=== PATIENT | female | born 1950 | race Caucasian/White ===

== ENCOUNTER 2020-07-17 12:52 | Inpatient (IN) | payer MEDICARE, OTHER ==
[~2020-07-17] VITALS: Ht 162.6 cm; Wt 108.0 kg
[2020-07-17] MEDS ORDERED: QUET100T PO (13:16)
[2020-07-17] MEDS ORDERED: MEMA10TA PO (13:16)
[2020-07-17] MEDS ORDERED: BUPR-96 PO (13:16)
[2020-07-17] MEDS ORDERED: PHEN-705 PO (13:16)
[2020-07-17] MEDS ORDERED: LOSA25TA3 PO (13:16)
[2020-07-17] MEDS ORDERED: ALBU18HF2 INH (13:16)
[2020-07-17] MEDS ORDERED: BENZ0.5T43 PO (13:16)
[2020-07-17] MEDS ORDERED: CHOL10002 PO (13:16)
[2020-07-17] MEDS ORDERED: OMEP20CA15 PO (13:16)
[2020-07-17] MEDS ORDERED: DONE10TA11 PO (13:16)
[2020-07-17] MEDS ORDERED: ARIP30TA3 IM (13:16)
[2020-07-17] MEDS ORDERED: FURO-152 PO (13:16)
[2020-07-17] MEDS ORDERED: ATOR20TA PO (13:16)
[2020-07-17] MEDS ORDERED: CEPH-570 PO (13:16)
[2020-07-17 15:00] VITALS: BP 144/72
[2020-07-17] MEDS ORDERED: BLOOD SUGAR DIAGNOSTIC 1 EACH STRIP VI ONE (15:45)
[2020-07-17] MEDS: MAG HYDROX/AL HYDROX/SIMETH 30 ML LIQUID UDC PO PRN (19:48)
[2020-07-17] MEDS ORDERED: ALBUTEROL SULFATE 2.5 MG/3 ML NEBU NEB PRN (20:00)
[2020-07-17 20:47] VITALS: BP 171/95
[2020-07-17] MEDS: ATORVASTATIN 20 MG TABLET PO SCH (21:48)
[2020-07-17] MEDS: TEMAZEPAM 7.5 MG CAPSULE PO PRN (23:02)
[2020-07-18] MEDS: CLONAZEPAM 0.5 MG TABLET PO PRN (03:02)
[2020-07-18 07:20] LABS: BASOPHILS % (AUTO) 0.6 % (0.0-2.0); EOSINOPHILS # (AUTO) 0.1 K/uL (0.0-0.7); HEMATOCRIT 42.8 % (31.2-41.9); LYMPHOCYTES # (AUTO) 1.8 K/uL (20.0-40.0); LYMPHOCYTES % (AUTO) 24.6 % (20.5-51.5); MEAN CORPUSCULAR HEMOGLOBIN 29.8 uug (24.7-32.8); MEAN CORPUSCULAR HGB CONC 33 g/dL (32.3-35.6); MEAN CORPUSCULAR VOLUME 91.2 fL (75.5-95.3); MONOCYTES # (AUTO) 0.7 K/uL (2.0-10.0); MONOCYTES % (AUTO) 9.7 % (0.0-11.0); NEUTROPHILS # (AUTO) 4.6 K/uL (1.8-8.9); NEUTROPHILS % (AUTO) 64.1 % (38.5-71.5); PLATELET COUNT (AUTO) 325 K/uL (179-408); WHITE BLOOD COUNT (AUTO) 7.1 K/uL (3.8-11.8)
[2020-07-18 07:30] VITALS: BP 169/102
[2020-07-18 07:42] LABS: THYROID STIMULATING HORMONE 1.758 mIU/mL (0.358-3.740)
[2020-07-18 07:59] LABS: BILIRUBIN,TOTAL 0.5 mg/dL (0.2-1.0); CREATININE 0.9 mg/dL (0.6-1.3); MAGNESIUM 2.3 mg/dL (1.8-2.4); PHOSPHOROUS 3.2 mg/dL (2.5-4.9); POTASSIUM 3.8 mmol/L (3.5-5.1); TOTAL PROTEIN, SERUM 7.9 g/dL (6.4-8.2)
[2020-07-18] MEDS: CHOLECALCIFEROL 1,000 UNIT TABLET PO SCH (09:30)
[2020-07-18] MEDS: LOSARTAN POTASSIUM 25 MG TABLET PO SCH (09:30)
[2020-07-18] MEDS: FUROSEMIDE 20 MG TABLET PO SCH (09:30)
[2020-07-18] MEDS: CEphaleXIN 500 MG CAPSULE PO SCH ×3 (09:30→17:21)
[2020-07-18] MEDS: buPROPion XL 150 MG TAB.SR.24H PO SCH (15:14)
[2020-07-18 16:00] VITALS: BP 177/90
[2020-07-18] MEDS: QUETIAPINE FUMARATE 100 MG TABLET PO SCH (17:21)
[2020-07-18] MEDS ORDERED: CLONIDINE HCL 0.1 MG TABLET PO PRN (18:15)
[2020-07-18] MEDS: BENZTROPINE MESYLATE 1 MG TABLET PO SCH (20:20)
[2020-07-18] MEDS: ATORVASTATIN 20 MG TABLET PO SCH (20:20)
[2020-07-18 20:52] VITALS: BP 146/99
[2020-07-19] MEDS: CLONAZEPAM 0.5 MG TABLET PO PRN ×3 (00:16→13:34)
[2020-07-19] MEDS: ACETAMINOPHEN 325 MG TABLET PO PRN (00:16)
[2020-07-19] MEDS: TEMAZEPAM 7.5 MG CAPSULE PO PRN (03:45)
[2020-07-19] MEDS: MAG HYDROX/AL HYDROX/SIMETH 30 ML LIQUID UDC PO PRN ×2 (06:43→18:01)
[2020-07-19 07:30] VITALS: BP 142/80
[2020-07-19] MEDS: LOSARTAN POTASSIUM 25 MG TABLET PO SCH (08:29)
[2020-07-19] MEDS: CHOLECALCIFEROL 1,000 UNIT TABLET PO SCH (08:29)
[2020-07-19] MEDS: buPROPion XL 150 MG TAB.SR.24H PO SCH (08:30)
[2020-07-19] MEDS: FUROSEMIDE 20 MG TABLET PO SCH (08:30)
[2020-07-19] MEDS: CEphaleXIN 500 MG CAPSULE PO SCH ×3 (08:30→17:10)
[2020-07-19] MEDS: OXCARBAZEPINE 150 MG TABLET PO SCH ×2 (14:02→20:34)
[2020-07-19 16:00] VITALS: BP 135/73
[2020-07-19] MEDS ORDERED: OLANZAPINE 10 MG VIAL IM ONE (16:00)
[2020-07-19] MEDS: QUETIAPINE FUMARATE 100 MG TABLET PO SCH (17:10)
[2020-07-19] MEDS ORDERED: diphenhydrAMINE 50 MG/1 ML VIAL IM STA (20:05)
[2020-07-19] MEDS ORDERED: LORAZEPAM 2 MG/1 ML VIAL IM STA (20:05)
[2020-07-19] MEDS ORDERED: HALOPERIDOL LACTATE 5 MG/1 ML VIAL IM PRN (20:15)
[2020-07-19] MEDS ORDERED: HALOPERIDOL LACTATE 5 MG/1 ML VIAL IM STA ×2 (20:24→20:41)
[2020-07-19] MEDS: BENZTROPINE MESYLATE 1 MG TABLET PO SCH (20:34)
[2020-07-19] MEDS: ATORVASTATIN 20 MG TABLET PO SCH (20:34)
[2020-07-20] MEDS: CLONAZEPAM 0.5 MG TABLET PO PRN (02:24)
[2020-07-20] MEDS: MAGNESIUM HYDROXIDE 30 ML LIQUID UDC PO PRN (02:24)
[2020-07-20] MEDS: PANTOPRAZOLE SODIUM 40 MG TABLET.DR PO SCH (06:14)
[2020-07-20 07:30] VITALS: BP 149/90
[2020-07-20] MEDS: FUROSEMIDE 20 MG TABLET PO SCH (09:11)
[2020-07-20] MEDS: OXCARBAZEPINE 150 MG TABLET PO SCH ×2 (09:11→16:09)
[2020-07-20] MEDS: LOSARTAN POTASSIUM 25 MG TABLET PO SCH (09:11)
[2020-07-20] MEDS: CEphaleXIN 500 MG CAPSULE PO SCH ×2 (09:11→12:00)
[2020-07-20] MEDS: CHOLECALCIFEROL 1,000 UNIT TABLET PO SCH (09:12)
[2020-07-20] MEDS: ACETAMINOPHEN 325 MG TABLET PO PRN ×2 (12:01→21:15)
[2020-07-20] MEDS: MAG HYDROX/AL HYDROX/SIMETH 30 ML LIQUID UDC PO PRN (13:10)
[2020-07-20] MEDS ORDERED: QUETIAPINE FUMARATE 100 MG TABLET PO SCH (18:00)
[2020-07-20 20:00] VITALS: BP 116/68
[2020-07-20] MEDS: BENZTROPINE MESYLATE 1 MG TABLET PO SCH (20:47)
[2020-07-20] MEDS: ATORVASTATIN 20 MG TABLET PO SCH (20:47)
[2020-07-21] MEDS: TEMAZEPAM 7.5 MG CAPSULE PO PRN (00:43)
[2020-07-21] MEDS: CLONAZEPAM 0.5 MG TABLET PO PRN ×3 (01:44→12:52)
[2020-07-21] MEDS ORDERED: HALOPERIDOL LACTATE 5 MG/1 ML VIAL IM ONE ×2 (02:30→08:45)
[2020-07-21] MEDS ORDERED: BENZTROPINE MESYLATE 2 MG/2 ML AMPUL IM ONE (02:30)
[2020-07-21] MEDS: PANTOPRAZOLE SODIUM 40 MG TABLET.DR PO SCH (07:22)
[2020-07-21 07:30] VITALS: BP 130/63
[2020-07-21] MEDS ORDERED: diphenhydrAMINE 50 MG/1 ML VIAL IM ONE (08:45)
[2020-07-21] MEDS ORDERED: LORAZEPAM 2 MG/1 ML VIAL IM ONE (08:45)
[2020-07-21] MEDS: OXCARBAZEPINE 150 MG TABLET PO SCH ×3 (09:00→16:08)
[2020-07-21] MEDS: FUROSEMIDE 20 MG TABLET PO SCH (09:00)
[2020-07-21] MEDS: CHOLECALCIFEROL 1,000 UNIT TABLET PO SCH (09:00)
[2020-07-21] MEDS: LOSARTAN POTASSIUM 25 MG TABLET PO SCH ×2 (09:00→12:54)
[2020-07-21] MEDS: QUETIAPINE FUMARATE 25 MG TABLET PO PRN ×2 (09:08→12:56)
[2020-07-21 16:00] VITALS: BP 117/83
[2020-07-21] MEDS ORDERED: QUETIAPINE FUMARATE 200 MG TABLET PO SCH (18:00)
[2020-07-21] MEDS: ATORVASTATIN 20 MG TABLET PO SCH (20:38)
[2020-07-21] MEDS: BENZTROPINE MESYLATE 1 MG TABLET PO SCH (20:38)
[2020-07-22] MEDS: MAGNESIUM HYDROXIDE 30 ML LIQUID UDC PO PRN (00:09)
[2020-07-22] MEDS: TEMAZEPAM 7.5 MG CAPSULE PO PRN ×2 (00:43→22:47)
[2020-07-22] MEDS: QUETIAPINE FUMARATE 25 MG TABLET PO PRN ×2 (01:04→08:04)
[2020-07-22] MEDS: CLONAZEPAM 0.5 MG TABLET PO PRN ×3 (01:07→20:08)
[2020-07-22] MEDS: PANTOPRAZOLE SODIUM 40 MG TABLET.DR PO SCH (06:05)
[2020-07-22 08:03] VITALS: BP 150/63
[2020-07-22] MEDS: OXCARBAZEPINE 150 MG TABLET PO SCH ×2 (08:48→16:44)
[2020-07-22] MEDS: LOSARTAN POTASSIUM 25 MG TABLET PO SCH (08:48)
[2020-07-22] MEDS: CHOLECALCIFEROL 1,000 UNIT TABLET PO SCH (08:49)
[2020-07-22] MEDS: FUROSEMIDE 20 MG TABLET PO SCH (08:49)
[2020-07-22 16:18] VITALS: BP 143/62
[2020-07-22] MEDS ORDERED: QUETIAPINE FUMARATE 100 MG TABLET PO SCH (18:00)
[2020-07-22] MEDS: BENZTROPINE MESYLATE 1 MG TABLET PO SCH (20:09)
[2020-07-22] MEDS: ATORVASTATIN 20 MG TABLET PO SCH (20:09)
[2020-07-22 21:24] VITALS: BP 122/49
[2020-07-23] MEDS: QUETIAPINE FUMARATE 25 MG TABLET PO PRN ×2 (02:15→08:37)
[2020-07-23] MEDS: ACETAMINOPHEN 325 MG TABLET PO PRN (02:15)
[2020-07-23] MEDS: CLONAZEPAM 0.5 MG TABLET PO PRN ×2 (05:18→17:09)
[2020-07-23] MEDS: PANTOPRAZOLE SODIUM 40 MG TABLET.DR PO SCH (06:17)
[2020-07-23 07:30] VITALS: BP 122/68
[2020-07-23] MEDS: FUROSEMIDE 20 MG TABLET PO SCH (08:31)
[2020-07-23] MEDS: OXCARBAZEPINE 150 MG TABLET PO SCH ×2 (08:31→16:24)
[2020-07-23] MEDS: CHOLECALCIFEROL 1,000 UNIT TABLET PO SCH (08:31)
[2020-07-23] MEDS: LOSARTAN POTASSIUM 25 MG TABLET PO SCH (08:31)
[2020-07-23] MEDS ORDERED: LORAZEPAM 2 MG/1 ML VIAL IM ONE ×2 (14:15→21:45)
[2020-07-23] MEDS ORDERED: HALOPERIDOL LACTATE 5 MG/1 ML VIAL IM ONE (14:15)
[2020-07-23] MEDS ORDERED: diphenhydrAMINE 50 MG/1 ML VIAL IM ONE (14:15)
[2020-07-23 16:00] VITALS: BP 140/87
[2020-07-23] MEDS: DIVALPROEX 125 MG TABLET.DR PO SCH (16:24)
[2020-07-23] MEDS: BENZTROPINE MESYLATE 1 MG TABLET PO SCH (20:05)
[2020-07-23] MEDS: OLANZAPINE ZYDIS 5 MG TAB.RAPDIS PO SCH (20:07)
[2020-07-23] MEDS: ATORVASTATIN 20 MG TABLET PO SCH (20:08)
[2020-07-23 20:52] VITALS: BP 120/55
[2020-07-23] MEDS ORDERED: OLANZAPINE 10 MG VIAL IM ONE (21:45)
[2020-07-24 00:33] LABS: *BILIRUBIN,URIN NEGATIVE (NEGATIVE); *BLOOD, URINE NEGATIVE (NEGATIVE); *COLOR,URINE YELLOW (YELLOW); *KETONES,URINE NEGATIVE (NEGATIVE); *UROBILINOGEN,URINE 0.2 E.U./dl (NORMAL); LEUKOCYTE ESTERASE ,URINE TRACE (NEGATIVE); NITRITE, URINE NEGATIVE (NEGATIVE); PH,URINE 6.5 (5.0-8.0); UGLUCOSE NEGATIVE (NEGATIVE)
[2020-07-24 00:47] LABS: *CLARITY,URINE HAZY (CLEAR)
[2020-07-24 00:53] LABS: BACTERIA,URINE NONE SEEN /HPF (NONE SEEN); SQUAMOUS EPITHELIAL CELL,UR MANY /HPF (NONE SEEN)
[2020-07-24] MEDS: TEMAZEPAM 7.5 MG CAPSULE PO PRN (01:39)
[2020-07-24] MEDS: CLONAZEPAM 0.5 MG TABLET PO PRN (02:47)
[2020-07-24] MEDS: PANTOPRAZOLE SODIUM 40 MG TABLET.DR PO SCH (06:31)
[2020-07-24 07:30] VITALS: BP 159/64
[2020-07-24] MEDS: CHOLECALCIFEROL 1,000 UNIT TABLET PO SCH (08:17)
[2020-07-24] MEDS: DIVALPROEX 125 MG TABLET.DR PO SCH ×2 (08:17→08:24)
[2020-07-24] MEDS: FUROSEMIDE 20 MG TABLET PO SCH (08:17)
[2020-07-24] MEDS: LOSARTAN POTASSIUM 25 MG TABLET PO SCH (08:17)
[2020-07-24] MEDS: OXCARBAZEPINE 150 MG TABLET PO SCH ×2 (08:17→18:13)
[2020-07-24] MEDS: OLANZAPINE ZYDIS 5 MG TAB.RAPDIS PO SCH ×2 (08:18→20:36)
[2020-07-24] MEDS: CLONAZEPAM 0.5 MG TABLET PO SCH ×2 (11:54→18:13)
[2020-07-24 16:00] VITALS: BP 111/72
[2020-07-24 20:00] VITALS: BP 145/79
[2020-07-24] MEDS: BENZTROPINE MESYLATE 1 MG TABLET PO SCH (20:35)
[2020-07-24] MEDS: ATORVASTATIN 20 MG TABLET PO SCH (20:35)
[2020-07-25] MEDS: TEMAZEPAM 7.5 MG CAPSULE PO PRN (00:31)
[2020-07-25] MEDS: CLONAZEPAM 0.5 MG TABLET PO PRN ×2 (01:25→21:44)
[2020-07-25] MEDS: PANTOPRAZOLE SODIUM 40 MG TABLET.DR PO SCH (06:21)
[2020-07-25 07:30] VITALS: BP 146/81
[2020-07-25] MEDS: CHOLECALCIFEROL 1,000 UNIT TABLET PO SCH (08:48)
[2020-07-25] MEDS: CLONAZEPAM 0.5 MG TABLET PO SCH ×3 (08:49→16:23)
[2020-07-25] MEDS: FUROSEMIDE 20 MG TABLET PO SCH (08:49)
[2020-07-25] MEDS: OXCARBAZEPINE 150 MG TABLET PO SCH ×2 (08:49→16:24)
[2020-07-25] MEDS: OLANZAPINE ZYDIS 5 MG TAB.RAPDIS PO SCH ×2 (08:49→20:21)
[2020-07-25] MEDS: LOSARTAN POTASSIUM 25 MG TABLET PO SCH (08:50)
[2020-07-25 15:23] VITALS: BP 149/84
[2020-07-25] MEDS: HALOPERIDOL 5 MG TABLET PO SCH (16:24)
[2020-07-25] MEDS: BENZTROPINE MESYLATE 1 MG TABLET PO SCH (20:21)
[2020-07-25] MEDS: ATORVASTATIN 20 MG TABLET PO SCH (20:21)
[2020-07-25 20:27] VITALS: BP 119/64
[2020-07-26] MEDS: ACETAMINOPHEN 325 MG TABLET PO PRN ×2 (03:44→14:54)
[2020-07-26] MEDS: PANTOPRAZOLE SODIUM 40 MG TABLET.DR PO SCH (06:03)
[2020-07-26 07:30] VITALS: BP 149/67
[2020-07-26] MEDS: FUROSEMIDE 20 MG TABLET PO SCH (09:27)
[2020-07-26] MEDS: OXCARBAZEPINE 150 MG TABLET PO SCH ×2 (09:27→16:37)
[2020-07-26] MEDS: CLONAZEPAM 0.5 MG TABLET PO SCH ×3 (09:27→16:36)
[2020-07-26] MEDS: OLANZAPINE ZYDIS 5 MG TAB.RAPDIS PO SCH ×2 (09:27→20:34)
[2020-07-26] MEDS: CHOLECALCIFEROL 1,000 UNIT TABLET PO SCH (09:27)
[2020-07-26] MEDS: HALOPERIDOL 5 MG TABLET PO SCH ×2 (09:27→16:37)
[2020-07-26] MEDS: LOSARTAN POTASSIUM 25 MG TABLET PO SCH (09:28)
[2020-07-26] MEDS: CLONAZEPAM 0.5 MG TABLET PO PRN ×2 (11:43→20:35)
[2020-07-26 16:00] VITALS: BP 151/75
[2020-07-26 20:27] VITALS: BP 131/81
[2020-07-26] MEDS: ATORVASTATIN 20 MG TABLET PO SCH (20:33)
[2020-07-26] MEDS: BENZTROPINE MESYLATE 1 MG TABLET PO SCH (20:33)
[2020-07-27] MEDS: TEMAZEPAM 7.5 MG CAPSULE PO PRN (00:14)
[2020-07-27] MEDS: ACETAMINOPHEN 325 MG TABLET PO PRN ×3 (00:14→21:46)
[2020-07-27] MEDS ORDERED: LORAZEPAM 2 MG/1 ML VIAL IM STA (01:08)
[2020-07-27] MEDS ORDERED: HALOPERIDOL LACTATE 5 MG/1 ML VIAL IM STA (01:08)
[2020-07-27] MEDS ORDERED: diphenhydrAMINE 50 MG/1 ML VIAL IM STA (01:08)
[2020-07-27] MEDS: PANTOPRAZOLE SODIUM 40 MG TABLET.DR PO SCH (06:19)
[2020-07-27 07:30] VITALS: BP 135/64
[2020-07-27] MEDS: CHOLECALCIFEROL 1,000 UNIT TABLET PO SCH (08:24)
[2020-07-27] MEDS: CLONAZEPAM 0.5 MG TABLET PO SCH ×3 (08:24→16:49)
[2020-07-27] MEDS: OXCARBAZEPINE 150 MG TABLET PO SCH ×2 (08:25→16:49)
[2020-07-27] MEDS: LOSARTAN POTASSIUM 25 MG TABLET PO SCH (08:25)
[2020-07-27] MEDS: FUROSEMIDE 20 MG TABLET PO SCH (08:25)
[2020-07-27] MEDS: OLANZAPINE ZYDIS 5 MG TAB.RAPDIS PO SCH ×2 (08:25→21:00)
[2020-07-27] MEDS: HALOPERIDOL 5 MG TABLET PO SCH ×2 (08:25→16:50)
[2020-07-27 16:00] VITALS: BP 112/48
[2020-07-27 20:26] VITALS: BP 106/56
[2020-07-27] MEDS: BENZTROPINE MESYLATE 1 MG TABLET PO SCH (21:01)
[2020-07-27] MEDS: ATORVASTATIN 20 MG TABLET PO SCH (21:01)
[2020-07-27] MEDS: CLONAZEPAM 0.5 MG TABLET PO PRN (21:46)
[2020-07-28] MEDS: TEMAZEPAM 7.5 MG CAPSULE PO PRN ×2 (00:34→23:03)
[2020-07-28] MEDS: PANTOPRAZOLE SODIUM 40 MG TABLET.DR PO SCH (06:05)
[2020-07-28 07:30] VITALS: BP 140/72
[2020-07-28] MEDS: OXCARBAZEPINE 150 MG TABLET PO SCH ×2 (08:42→17:28)
[2020-07-28] MEDS: CHOLECALCIFEROL 1,000 UNIT TABLET PO SCH (08:42)
[2020-07-28] MEDS: FUROSEMIDE 20 MG TABLET PO SCH (08:42)
[2020-07-28] MEDS: HALOPERIDOL 5 MG TABLET PO SCH ×2 (08:43→20:28)
[2020-07-28] MEDS: CLONAZEPAM 0.5 MG TABLET PO SCH ×3 (08:43→17:28)
[2020-07-28] MEDS: LOSARTAN POTASSIUM 25 MG TABLET PO SCH (08:43)
[2020-07-28] MEDS: OLANZAPINE ZYDIS 5 MG TAB.RAPDIS PO SCH ×2 (08:43→20:29)
[2020-07-28 16:00] VITALS: BP 132/57
[2020-07-28 20:00] VITALS: BP 116/71
[2020-07-28] MEDS: BENZTROPINE MESYLATE 1 MG TABLET PO SCH (20:27)
[2020-07-28] MEDS: ATORVASTATIN 20 MG TABLET PO SCH (20:28)
[2020-07-29] MEDS: CLONAZEPAM 0.5 MG TABLET PO PRN ×2 (01:11→22:38)
[2020-07-29] MEDS: ACETAMINOPHEN 325 MG TABLET PO PRN ×3 (01:12→22:38)
[2020-07-29] MEDS ORDERED: diphenhydrAMINE 50 MG/1 ML VIAL IM ONE (02:00)
[2020-07-29] MEDS ORDERED: LORAZEPAM 2 MG/1 ML VIAL IM ONE ×2 (02:00→13:45)
[2020-07-29] MEDS ORDERED: HALOPERIDOL LACTATE 5 MG/1 ML VIAL IM ONE (02:00)
[2020-07-29] MEDS: PANTOPRAZOLE SODIUM 40 MG TABLET.DR PO SCH (06:34)
[2020-07-29 07:30] VITALS: BP 137/73
[2020-07-29] MEDS ORDERED: HALOPERIDOL 5 MG TABLET PO SCH (09:00)
[2020-07-29] MEDS: CLONAZEPAM 0.5 MG TABLET PO SCH ×3 (09:33→16:34)
[2020-07-29] MEDS: OXCARBAZEPINE 150 MG TABLET PO SCH ×2 (09:33→16:34)
[2020-07-29] MEDS: CHOLECALCIFEROL 1,000 UNIT TABLET PO SCH (09:33)
[2020-07-29] MEDS: OLANZAPINE ZYDIS 5 MG TAB.RAPDIS PO SCH ×2 (09:33→21:02)
[2020-07-29] MEDS: FUROSEMIDE 20 MG TABLET PO SCH (09:33)
[2020-07-29] MEDS: LOSARTAN POTASSIUM 25 MG TABLET PO SCH (09:34)
[2020-07-29] MEDS ORDERED: chlorproMAZINE 50 MG/2 ML AMPUL IM ONE (13:45)
[2020-07-29 16:00] VITALS: BP 107/64
[2020-07-29 20:43] VITALS: BP 139/71
[2020-07-29] MEDS: BENZTROPINE MESYLATE 1 MG TABLET PO SCH (21:02)
[2020-07-29] MEDS: HALOPERIDOL 5 MG TABLET PO SCH (21:02)
[2020-07-29] MEDS: ATORVASTATIN 20 MG TABLET PO SCH (21:03)
[2020-07-30] MEDS: CLONAZEPAM 0.5 MG TABLET PO PRN ×2 (04:40→11:25)
[2020-07-30] MEDS: ACETAMINOPHEN 325 MG TABLET PO PRN (04:41)
[2020-07-30] MEDS: PANTOPRAZOLE SODIUM 40 MG TABLET.DR PO SCH (06:09)
[2020-07-30 07:30] VITALS: BP 131/62
[2020-07-30] MEDS: CHOLECALCIFEROL 1,000 UNIT TABLET PO SCH (08:07)
[2020-07-30] MEDS: OXCARBAZEPINE 150 MG TABLET PO SCH ×2 (08:07→17:05)
[2020-07-30] MEDS: HALOPERIDOL 5 MG TABLET PO SCH ×2 (08:08→21:00)
[2020-07-30] MEDS: CLONAZEPAM 0.5 MG TABLET PO SCH ×2 (08:08→13:48)
[2020-07-30] MEDS: FUROSEMIDE 20 MG TABLET PO SCH (08:08)
[2020-07-30] MEDS: OLANZAPINE ZYDIS 5 MG TAB.RAPDIS PO SCH ×2 (08:08→21:00)
[2020-07-30] MEDS: LOSARTAN POTASSIUM 25 MG TABLET PO SCH (08:09)
[2020-07-30 16:00] VITALS: BP 145/69
[2020-07-30] MEDS ORDERED: CLONAZEPAM 0.5 MG TABLET PO SCH (17:00)
[2020-07-30] MEDS ORDERED: chlorproMAZINE 50 MG/2 ML AMPUL IM ONE (20:15)
[2020-07-30] MEDS ORDERED: LORAZEPAM 2 MG/1 ML VIAL IM ONE (20:15)
[2020-07-30] MEDS ORDERED: chlorproMAZINE 50 MG/2 ML AMPUL ONE (20:57)
[2020-07-30] MEDS: ATORVASTATIN 20 MG TABLET PO SCH (21:00)
[2020-07-30] MEDS: BENZTROPINE MESYLATE 1 MG TABLET PO SCH (21:00)
[2020-07-30 21:54] VITALS: BP 135/58
[2020-07-31] MEDS: TEMAZEPAM 7.5 MG CAPSULE PO PRN (01:42)
[2020-07-31] MEDS: PANTOPRAZOLE SODIUM 40 MG TABLET.DR PO SCH (06:11)
[2020-07-31 07:30] VITALS: BP 98/47
[2020-07-31] MEDS: HALOPERIDOL 5 MG TABLET PO SCH ×2 (08:57→20:53)
[2020-07-31] MEDS: OLANZAPINE ZYDIS 5 MG TAB.RAPDIS PO SCH ×2 (08:57→20:54)
[2020-07-31] MEDS: OXCARBAZEPINE 150 MG TABLET PO SCH ×2 (08:57→16:58)
[2020-07-31] MEDS: FUROSEMIDE 20 MG TABLET PO SCH (08:57)
[2020-07-31] MEDS: CLONAZEPAM 1 MG TABLET PO SCH ×3 (08:57→16:59)
[2020-07-31] MEDS: CHOLECALCIFEROL 1,000 UNIT TABLET PO SCH (08:58)
[2020-07-31] MEDS: LOSARTAN POTASSIUM 25 MG TABLET PO SCH (09:04)
[2020-07-31 10:37] LABS: BASOPHILS % (AUTO) 0.7 % (0.0-2.0); EOSINOPHILS # (AUTO) 0.1 K/uL (0.0-0.7); EOSINOPHILS % (AUTO) 1.3 % (0.0-7.0); HEMATOCRIT 37.8 % (31.2-41.9); HEMOGLOBIN 12.7 g/dL (10.9-14.3); LYMPHOCYTES % (AUTO) 17.1 % (20.5-51.5); MEAN CORPUSCULAR HEMOGLOBIN 30.3 uug (24.7-32.8); MEAN CORPUSCULAR HGB CONC 34 g/dL (32.3-35.6); MEAN CORPUSCULAR VOLUME 90.4 fL (75.5-95.3); MONOCYTES # (AUTO) 0.8 K/uL (2.0-10.0); MONOCYTES % (AUTO) 13.9 % (0.0-11.0); NEUTROPHILS # (AUTO) 4.1 K/uL (1.8-8.9); PLATELET COUNT (AUTO) 237 K/uL (179-408); RED BLOOD CELL COUNT(AUTO) 4.18 MIL/uL (3.63-4.92); WHITE BLOOD COUNT (AUTO) 6.1 K/uL (3.8-11.8)
[2020-07-31] MEDS: MAGNESIUM HYDROXIDE 30 ML LIQUID UDC PO PRN (13:25)
[2020-07-31 16:00] VITALS: BP 105/62
[2020-07-31 20:00] VITALS: BP 129/80
[2020-07-31] MEDS: BENZTROPINE MESYLATE 1 MG TABLET PO SCH (20:53)
[2020-07-31] MEDS: ATORVASTATIN 20 MG TABLET PO SCH (20:54)
[2020-07-31] MEDS ORDERED: CLOZAPINE 25 MG TABLET PO SCH (21:00)
[2020-08-01] MEDS: TEMAZEPAM 7.5 MG CAPSULE PO PRN (00:45)
[2020-08-01] MEDS ORDERED: DOXYCYCLINE HYCLATE 100 MG TABLET ONE (00:50)
[2020-08-01] MEDS: DOXYCYCLINE HYCLATE 100 MG TABLET PO SCH ×3 (00:51→20:50)
[2020-08-01] MEDS: ACETAMINOPHEN 325 MG TABLET PO PRN (05:09)
[2020-08-01] MEDS: CLONAZEPAM 0.5 MG TABLET PO PRN ×2 (05:09→20:51)
[2020-08-01] MEDS: PANTOPRAZOLE SODIUM 40 MG TABLET.DR PO SCH (06:22)
[2020-08-01 07:30] VITALS: BP 124/69
[2020-08-01] MEDS: LOSARTAN POTASSIUM 25 MG TABLET PO SCH (09:12)
[2020-08-01] MEDS: CLONAZEPAM 1 MG TABLET PO SCH ×4 (09:12→17:53)
[2020-08-01] MEDS: FUROSEMIDE 20 MG TABLET PO SCH (09:12)
[2020-08-01] MEDS: HALOPERIDOL 5 MG TABLET PO SCH ×2 (09:12→20:50)
[2020-08-01] MEDS: CHOLECALCIFEROL 1,000 UNIT TABLET PO SCH (09:12)
[2020-08-01] MEDS: OLANZAPINE ZYDIS 5 MG TAB.RAPDIS PO SCH ×2 (09:13→20:49)
[2020-08-01] MEDS: OXCARBAZEPINE 150 MG TABLET PO SCH ×3 (09:13→17:56)
[2020-08-01] MEDS: CYANOCOBALAMIN 1000 MCG/ML VIAL IM SCH (12:36)
[2020-08-01 16:03] VITALS: BP 136/78
[2020-08-01 20:00] VITALS: BP 116/60
[2020-08-01] MEDS: BENZTROPINE MESYLATE 1 MG TABLET PO SCH (20:51)
[2020-08-01] MEDS: CLOZAPINE 25 MG TABLET PO SCH (20:51)
[2020-08-01] MEDS: ATORVASTATIN 20 MG TABLET PO SCH (20:52)
[2020-08-02] MEDS: TEMAZEPAM 7.5 MG CAPSULE PO PRN ×2 (00:28→21:15)
[2020-08-02] MEDS: ACETAMINOPHEN 325 MG TABLET PO PRN ×2 (00:28→05:27)
[2020-08-02] MEDS: CLONAZEPAM 0.5 MG TABLET PO PRN ×2 (05:28→19:39)
[2020-08-02] MEDS: PANTOPRAZOLE SODIUM 40 MG TABLET.DR PO SCH (06:04)
[2020-08-02 07:30] VITALS: BP 124/51
[2020-08-02] MEDS: CHOLECALCIFEROL 1,000 UNIT TABLET PO SCH (08:06)
[2020-08-02] MEDS: DOXYCYCLINE HYCLATE 100 MG TABLET PO SCH (08:06)
[2020-08-02] MEDS: OLANZAPINE ZYDIS 5 MG TAB.RAPDIS PO SCH ×2 (08:07→16:44)
[2020-08-02] MEDS: HALOPERIDOL 5 MG TABLET PO SCH (08:07)
[2020-08-02] MEDS: OXCARBAZEPINE 150 MG TABLET PO SCH ×2 (08:07→16:43)
[2020-08-02] MEDS: CLONAZEPAM 1 MG TABLET PO SCH ×2 (08:07→12:08)
[2020-08-02] MEDS: LOSARTAN POTASSIUM 25 MG TABLET PO SCH (08:15)
[2020-08-02] MEDS: FUROSEMIDE 20 MG TABLET PO SCH (08:16)
[2020-08-02] MEDS: CYANOCOBALAMIN 1000 MCG/ML VIAL IM SCH (10:23)
[2020-08-02] MEDS ORDERED: BENZTROPINE MESYLATE 1 MG TABLET PO PRN (14:15)
[2020-08-02 16:00] VITALS: BP 122/67
[2020-08-02] MEDS: CLOZAPINE 25 MG TABLET PO SCH (20:07)
[2020-08-02] MEDS: ATORVASTATIN 20 MG TABLET PO SCH (20:07)
[2020-08-02 20:40] VITALS: BP 125/64
[2020-08-03] MEDS: CLONAZEPAM 0.5 MG TABLET PO PRN ×2 (01:45→19:28)
[2020-08-03] MEDS: PANTOPRAZOLE SODIUM 40 MG TABLET.DR PO SCH (06:15)
[2020-08-03 07:30] VITALS: BP 158/81
[2020-08-03] MEDS: FUROSEMIDE 20 MG TABLET PO SCH (09:13)
[2020-08-03] MEDS: OXCARBAZEPINE 150 MG TABLET PO SCH ×2 (09:13→17:41)
[2020-08-03] MEDS: OLANZAPINE ZYDIS 5 MG TAB.RAPDIS PO SCH ×2 (09:13→17:41)
[2020-08-03] MEDS: LOSARTAN POTASSIUM 25 MG TABLET PO SCH (09:13)
[2020-08-03] MEDS: CHOLECALCIFEROL 1,000 UNIT TABLET PO SCH (09:14)
[2020-08-03] MEDS: CYANOCOBALAMIN 1000 MCG/ML VIAL IM SCH (09:56)
[2020-08-03 15:26] VITALS: BP 134/80
[2020-08-03] MEDS: CLOZAPINE 25 MG TABLET PO SCH (20:02)
[2020-08-03] MEDS: ATORVASTATIN 20 MG TABLET PO SCH (20:02)
[2020-08-03 20:53] VITALS: BP 134/63
[2020-08-03] MEDS: TEMAZEPAM 7.5 MG CAPSULE PO PRN (21:06)
[2020-08-04] MEDS: CLONAZEPAM 0.5 MG TABLET PO PRN ×3 (01:30→20:56)
[2020-08-04] MEDS: PANTOPRAZOLE SODIUM 40 MG TABLET.DR PO SCH (06:15)
[2020-08-04 07:30] VITALS: BP 135/79
[2020-08-04] MEDS: OXCARBAZEPINE 150 MG TABLET PO SCH ×2 (08:51→17:06)
[2020-08-04] MEDS: LOSARTAN POTASSIUM 25 MG TABLET PO SCH (08:51)
[2020-08-04] MEDS: OLANZAPINE ZYDIS 5 MG TAB.RAPDIS PO SCH ×2 (08:51→17:10)
[2020-08-04] MEDS: FUROSEMIDE 20 MG TABLET PO SCH (08:51)
[2020-08-04] MEDS: CYANOCOBALAMIN 1000 MCG/ML VIAL IM SCH (08:54)
[2020-08-04] MEDS: CHOLECALCIFEROL 1,000 UNIT TABLET PO SCH (09:00)
[2020-08-04] MEDS: CLOZAPINE 25 MG TABLET PO SCH ×2 (14:12→20:56)
[2020-08-04 15:51] VITALS: BP 119/55
[2020-08-04 20:00] VITALS: BP 126/62
[2020-08-04] MEDS: TEMAZEPAM 7.5 MG CAPSULE PO PRN (20:57)
[2020-08-04] MEDS: ATORVASTATIN 20 MG TABLET PO SCH (21:22)
[2020-08-05] MEDS: CLONAZEPAM 0.5 MG TABLET PO PRN (03:37)
[2020-08-05] MEDS: PANTOPRAZOLE SODIUM 40 MG TABLET.DR PO SCH (07:00)
[2020-08-05 07:30] VITALS: BP 148/79
[2020-08-05] MEDS: OLANZAPINE ZYDIS 5 MG TAB.RAPDIS PO SCH (08:08)
[2020-08-05] MEDS: CLOZAPINE 25 MG TABLET PO SCH (08:08)
[2020-08-05] MEDS: FUROSEMIDE 20 MG TABLET PO SCH (08:08)
[2020-08-05] MEDS: CHOLECALCIFEROL 1,000 UNIT TABLET PO SCH (08:08)
[2020-08-05] MEDS: OXCARBAZEPINE 150 MG TABLET PO SCH (08:08)
[2020-08-05 08:09] VITALS: BP 148/79
[2020-08-05] MEDS: LOSARTAN POTASSIUM 25 MG TABLET PO SCH (08:09)
[2020-08-05 08:22] LABS: CREATININE 0.7 mg/dL (0.6-1.3); POTASSIUM 4.1 mmol/L (3.5-5.1)
[2020-08-05] MEDS ORDERED: OLANZAPINE ZYDIS 5 MG TAB.RAPDIS PO SCH (17:00)
[2020-08-05] MEDS ORDERED: OXCA300T4 PO (17:23)
[2020-08-05] MEDS ORDERED: OLAN5TAB3 PO (17:23)
[2020-08-05] MEDS ORDERED: ALBU2.5V13 NEB (17:23)
[2020-08-05] MEDS ORDERED: LOSA25TA3 PO (17:23)
[2020-08-05] MEDS ORDERED: MAGN400O6 PO (17:23)
[2020-08-05] MEDS ORDERED: ACET-2154 PO (17:23)
[2020-08-05] MEDS ORDERED: CLON0.5T PO (17:23)
[2020-08-05] MEDS ORDERED: MAG355OR18 PO (17:23)
[2020-08-05] MEDS ORDERED: TEMA7.5C PO (17:23)
[2020-08-05] MEDS ORDERED: CLON0.1T14 PO (17:23)
[2020-08-05] MEDS ORDERED: CLOZ100T32 PO ×2 (17:23)
[2020-08-05] MEDS ORDERED: PANT40TA2 PO (17:23)
== END 2020-08-05 14:50 | disposition short-term general hospital (02) | DRG 885 ==
LOC: ER 12:52 → GPS 14:47
PROVIDERS: ADMIT Psychiatry & Neurology Psychiatry; ATTEND Hospitalist
DX: F25.9 Schizoaffective disorder, unspecified (principal); Z68.41 Body mass index [BMI] 40.0-44.9, adult; J45.909 Unspecified asthma, uncomplicated; E78.5 Hyperlipidemia, unspecified; I87.2 Venous insufficiency (chronic) (peripheral); E66.01 Morbid (severe) obesity due to excess calories; Z68.38 Body mass index [BMI] 38.0-38.9, adult; Z87.440 Personal history of urinary (tract) infections; I10 Essential (primary) hypertension; I89.0 Lymphedema, not elsewhere classified; I80.9 Phlebitis and thrombophlebitis of unspecified site; F12.10 Cannabis abuse, uncomplicated; Z73.6 Limitation of activities due to disability; M20.42 Other hammer toe(s) (acquired), left foot; M20.41 Other hammer toe(s) (acquired), right foot; F31.9 Bipolar disorder, unspecified
CPT/HCPCS: 36415; 71045; 73630; 83735; 84100; 84443; 85025; 87086; 93005; A4663; J0515; J1200; J1630; J2060; J2358; J3230; J3420

== ENCOUNTER 2020-08-05 14:23 | Inpatient (IN) | payer OTHER ==
[~2020-08-05] VITALS: Ht 162.6 cm; Wt 65.8 kg
[~2020-08-05 14:23] MED LIST: ALBU18HF2 INH; ARIP30TA3 IM; ATOR20TA PO; BENZ0.5T43 PO; BUPR-96 PO; CEPH-570 PO; CHOL10002 PO; DONE10TA11 PO; FURO-152 PO; LOSA25TA3 PO; MEMA10TA PO; OMEP20CA15 PO; PHEN-705 PO; QUET100T PO
[2020-08-05 14:36] VITALS: BP 125/68
--- NOTE | 2020-08-05 14:45 | NUR ---
RECEIVED FROM MHU. 30 DAY HOLD DC'D BY MHU TEAM, AND PATIENT BROUGHT TO FLOOR BY 3 NURSES AND SECURITY. 1:1 SITTER NO LONGER NEEDED PER MHU AND MDS. PATIENT REFUSING TO STAY IN BED. STATES "THEY STOLE MY JEWELLRY AND MEDS DOWNSTAIRS. I JUST GOT MY CLOTHES BACK. REFUSING TO WEAR HOSPITAL GOWN.
--- NOTE | 2020-08-05 15:30 | NUR ---
STATES I AM LEAVING TO SEE MY MD dR. BRITO AT [facility]. INSTRUCTED THAT SHE NEEDS IV ANTIBIOTICS FOR HER CELLULITIS. REFUSING TO HAVE PHOTOS TAKEN OF HER LEGS. STATES DO NOT LIFT UP MY DRESS.
--- NOTE | 2020-08-05 16:05 | NUR ---
Transfer from MHU Note: Pt was transferred to the medical floor for cellulitis. Pts 5270 hold was broken. SW informed the pts , the pts healthcare insurance sales agent, and the pts outside psychiatrist. Pts discharge plan is to return to her home with her once she is stable. Pt has the following outpatient appointments scheduled: Patient will follow up with Dr. Cordero (psychiatrist) at [facility] Located at [address] [place] [address] [place] [address]; ([phone]) on August 11 at 9AM and will follow up with Dr. Cordero again on August 28 at 3:30PM.
[2020-08-05] MEDS ORDERED: ACET-2154 PO (17:23)
[2020-08-05] MEDS ORDERED: LOSA25TA3 PO (17:23)
[2020-08-05] MEDS ORDERED: OXCA300T4 PO (17:23)
[2020-08-05] MEDS ORDERED: CLOZ100T32 PO ×2 (17:23)
[2020-08-05] MEDS ORDERED: OLAN5TAB3 PO (17:23)
[2020-08-05] MEDS ORDERED: CLON0.1T14 PO (17:23)
[2020-08-05] MEDS ORDERED: CLON0.5T PO (17:23)
[2020-08-05] MEDS ORDERED: MAG355OR18 PO (17:23)
[2020-08-05] MEDS ORDERED: MAGN400O6 PO (17:23)
[2020-08-05] MEDS ORDERED: PANT40TA2 PO (17:23)
[2020-08-05] MEDS ORDERED: TEMA7.5C PO (17:23)
[2020-08-05] MEDS ORDERED: ALBU2.5V13 NEB (17:23)
--- NOTE | 2020-08-05 17:30 | NUR ---
ANTIBIOTICS ORDERED. PATIENT ALLERGIC VANCOMYCIN. Isreal SANTACRUZ NOTIFIED, AND ORDERS RECEIVED. PATIENT BECOMING MORE AGITATED. SON - FRANKLIN CALLED AND CAME TO HOSPITAL TO TAKE MOM HOME. STATES HE WAS CALLED BE [facility]HU & TOLD THAT SHE HAD BEEN DISCHARGED. FRANKLIN KINDLY ACCEPTED EXPLANATION THAT SHE IS ADMITTED TO [facility] FOR IV ABX THERAPY.
--- NOTE | 2020-08-05 17:50 | NUR ---
DR. BROOKE ORDERED IM MED FOR PATIENT. JIE LEAVING AMA WITH BELONGINGS. JANKI DUENAS CALLED.
[2020-08-05] MEDS ORDERED: HALOPERIDOL LACTATE 5 MG/1 ML VIAL IM ONE (18:00)
[2020-08-05] MEDS ORDERED: diphenhydrAMINE 50 MG/1 ML VIAL IM ONE (18:00)
[2020-08-05] MEDS ORDERED: LORAZEPAM 2 MG/1 ML VIAL IM ONE (18:00)
[2020-08-05] MEDS ORDERED: Z GUARD REMEDY PASTE 57 GM TUBE TOP PRN (19:45)
[2020-08-05] MEDS ORDERED: ONDANSETRON 4 MG/2 ML VIAL IV PRN (19:45)
[2020-08-05] MEDS ORDERED: ZOLPIDEM 5 MG TABLET PO PRN (19:45)
[2020-08-05 20:00] VITALS: BP 138/87
[2020-08-05] MEDS: CEFEPIME HCL 1 G in IV DEXTROSE 5% 50 ML IV SCH (20:57)
[2020-08-05] MEDS ORDERED: CEFEPIME HCL 1 G VIAL IV SCH (21:00)
[2020-08-05] MEDS: ENOXAPARIN SODIUM 40 MG/0.4 ML DISP.SYRIN SQ SCH (21:07)
--- NOTE | 2020-08-05 22:00 | NUR ---
Patient alert and verbally responsive calm and cooperative.1:1 sitter at bedside.IV site on left hand 22 g patent and intact.IV ATB given as ordered.No A/R noted.Ambulates to the bathroom with the use of walker.Bilateral lower legs cellulitis.Elevated BLE.Due meds given.
[2020-08-05] MEDS ORDERED: CLOZAPINE 25 MG TABLET PO SCH (22:15)
[2020-08-05] MEDS ORDERED: CLOZAPINE 25 MG TABLET PO ONE (22:45)
[2020-08-05] MEDS ORDERED: OXCARBAZEPINE 150 MG TABLET ONE (23:39)
[2020-08-06] MEDS: OLANZAPINE 5 MG TABLET PO SCH ×3 (00:01→17:45)
[2020-08-06] MEDS: OXCARBAZEPINE 300 MG TABLET PO SCH ×3 (00:04→17:45)
[2020-08-06] MEDS: ACETAMINOPHEN 325 MG TABLET PO PRN ×2 (01:16→20:43)
[2020-08-06 06:37] VITALS: BP 130/61
[2020-08-06 06:55] LABS: BASOPHILS % (AUTO) 0.8 % (0.0-2.0); EOSINOPHILS # (AUTO) 0.2 K/uL (0.0-0.7); EOSINOPHILS % (AUTO) 5.6 % (0.0-7.0); HEMATOCRIT 30.2 % (31.2-41.9); HEMOGLOBIN 10.5 g/dL (10.9-14.3); MEAN CORPUSCULAR HEMOGLOBIN 31.1 uug (24.7-32.8); MEAN CORPUSCULAR HGB CONC 35 g/dL (32.3-35.6); MEAN CORPUSCULAR VOLUME 89.4 fL (75.5-95.3); MONOCYTES # (AUTO) 0.6 K/uL (2.0-10.0); MONOCYTES % (AUTO) 13.4 % (0.0-11.0); NEUTROPHILS # (AUTO) 2.4 K/uL (1.8-8.9); NEUTROPHILS % (AUTO) 56.2 % (38.5-71.5); PLATELET COUNT (AUTO) 215 K/uL (179-408); RED BLOOD CELL COUNT(AUTO) 3.38 MIL/uL (3.63-4.92); WHITE BLOOD COUNT (AUTO) 4.3 K/uL (3.8-11.8)
[2020-08-06 07:10] LABS: CREATININE 0.6 mg/dL (0.6-1.3); MAGNESIUM 2.1 mg/dL (1.8-2.4); PHOSPHOROUS 3.9 mg/dL (2.5-4.9); POTASSIUM 3.7 mmol/L (3.5-5.1)
--- NOTE | 2020-08-06 07:30 | NUR ---
Received patient resting in bed, awake, alert and oriented times 2-3. No respiratory distress noted at this time. Patient is hep lock with IV on the left hand 22 gauge. Patients vital signs are within normal limits. Patient has a 1:1 sitter. Safety precautions has been put in place. Will continue to monitor.
--- NOTE | 2020-08-06 08:22 | NUR ---
Update on Legal Status and Clinical Social Work Note Dr Martins made decision to keep 5270 ( 30 day hold ) in place last night as patient was uncooperative on medical floor and tried to leave the unit. She was aggressive and fighting with staff in the elevator. Patient does not comprehend the seriousness of her cellulitis. Chelsey MATERIAL ASSISTANT was consulted and feels pt. needs IV antibiotics as her cellulitis has worsened since admission. Patient is convinced she has a bed waiting for her at [facility]. Patient shows no insight into her medical or psychiatric condition. She is on Clozaril but remains labile with poor judgement. Dr Mccormick requested second opinion from Dr Camarena regarding psychotropic medication. Dr Camarena reviewed medication some days ago and noted that Clozaril needs to be titrated slowly but last night agreed to review medication again today. Patient is unmanageable with Cloizaril alone currently and required IM and code petersen was called last night when she tried to leave the hospital. Patient's is caring and involved. It is hoped that patient can go home into the care of her once she is medically stable. Patient's 30 day hold will be up on September 01. Dr Martins will follow pt. upstairs and Dr monterroso will do second opinion consultation re medication.
[2020-08-06] MEDS: CEFEPIME HCL 1 G in IV DEXTROSE 5% 50 ML IV SCH ×2 (09:03→20:40)
[2020-08-06 11:47] VITALS: BP 138/76
[2020-08-06] MEDS ORDERED: OLANZAPINE ZYDIS 5 MG TAB.RAPDIS PO PRN (12:00)
[2020-08-06 16:00] VITALS: BP 129/64
[2020-08-06 20:00] VITALS: BP 134/70
[2020-08-06] MEDS ORDERED: TEMAZEPAM 7.5 MG CAPSULE PO PRN (20:00)
[2020-08-06] MEDS ORDERED: CLONIDINE HCL 0.1 MG TABLET PO PRN (20:00)
[2020-08-06] MEDS ORDERED: ALBUTEROL SULFATE 2.5 MG/ 0.5 ML NEBU NEB PRN (20:00)
[2020-08-06] MEDS ORDERED: MAG HYDROX/AL HYDROX/SIMETH 30 ML LIQUID UDC PO PRN (20:00)
[2020-08-06] MEDS ORDERED: MAGNESIUM HYDROXIDE 30 ML LIQUID UDC PO PRN (20:00)
[2020-08-06] MEDS ORDERED: ACETAMINOPHEN 325 MG TABLET PO PRN (20:00)
--- NOTE | 2020-08-06 20:37 | NUR ---
Left patient resting comfortably in bed. No sign of respiratory distress noted at this time. . Gave all medications as ordered. Call light with in reach. Safety measures in place. Will endorse to the oncoming nurse.
[2020-08-06] MEDS: ENOXAPARIN SODIUM 40 MG/0.4 ML DISP.SYRIN SQ SCH (20:41)
[2020-08-06] MEDS ORDERED: ATORVASTATIN 20 MG TABLET PO SCH (21:00)
[2020-08-06] MEDS ORDERED: BENZTROPINE MESYLATE 1 MG TABLET PO SCH (21:00)
[2020-08-06] MEDS ORDERED: CLOZAPINE 100 MG TABLET PO SCH ×2 (21:00)
--- NOTE | 2020-08-06 22:41 | NUR ---
received patient in bed upon initial rounds. 1:1 sitter at bedside. quiet and calm. no signs of agitation or behavioral issues noted. VSS. Needs attended. All due meds given as scheduled. On IV antibiotic for cellulitis of BLE. Tolerated well. No ill effects noted. Continent of bowel and bladder. Complained of pain both legs, Tylenol given. Will monitor patient.
[2020-08-07 04:00] VITALS: BP 132/68
--- NOTE | 2020-08-07 06:35 | NUR ---
End of shift notes: slept @ short intervals. aaox4 patient been up and about. Maalox given for upset stomach. Voiding well in the BR. Sitter @ bedside. VSS. Will monitor patient. Ambulates to and from the hallway with walker.
[2020-08-07 06:47] LABS: BASOPHILS % (AUTO) 0.8 % (0.0-2.0); EOSINOPHILS # (AUTO) 0.2 K/uL (0.0-0.7); EOSINOPHILS % (AUTO) 4.1 % (0.0-7.0); HEMATOCRIT 36.1 % (31.2-41.9); HEMOGLOBIN 12.1 g/dL (10.9-14.3); LYMPHOCYTES # (AUTO) 1.2 K/uL (20.0-40.0); LYMPHOCYTES % (AUTO) 20.8 % (20.5-51.5); MEAN CORPUSCULAR HGB CONC 33 g/dL (32.3-35.6); MEAN CORPUSCULAR VOLUME 89.7 fL (75.5-95.3); MONOCYTES # (AUTO) 0.6 K/uL (2.0-10.0); MONOCYTES % (AUTO) 9.4 % (0.0-11.0); NEUTROPHILS # (AUTO) 3.8 K/uL (1.8-8.9); NEUTROPHILS % (AUTO) 64.9 % (38.5-71.5); PLATELET COUNT (AUTO) 269 K/uL (179-408); RED BLOOD CELL COUNT(AUTO) 4.03 MIL/uL (3.63-4.92); WHITE BLOOD COUNT (AUTO) 5.9 K/uL (3.8-11.8)
[2020-08-07] MEDS ORDERED: PANTOPRAZOLE SODIUM 40 MG TABLET.DR PO SCH (07:00)
[2020-08-07] MEDS: OLANZAPINE 5 MG TABLET PO SCH (07:40)
[2020-08-07] MEDS: OXCARBAZEPINE 300 MG TABLET PO SCH ×2 (07:45→16:01)
[2020-08-07 07:52] VITALS: BP 164/84
[2020-08-07] MEDS: CEFEPIME HCL 1 G in IV DEXTROSE 5% 50 ML IV SCH (08:03)
[2020-08-07] MEDS ORDERED: CHOLECALCIFEROL 1,000 UNIT TABLET PO SCH (09:00)
[2020-08-07] MEDS ORDERED: CLOZAPINE 25 MG TABLET PO SCH (09:00)
[2020-08-07] MEDS ORDERED: OXCARBAZEPINE 300 MG TABLET PO SCH (09:00)
[2020-08-07] MEDS ORDERED: OLANZAPINE 5 MG TABLET PO SCH (09:00)
[2020-08-07] MEDS ORDERED: LOSARTAN POTASSIUM 25 MG TABLET PO SCH (09:00)
[2020-08-07] MEDS ORDERED: FUROSEMIDE 20 MG TABLET PO SCH (09:00)
[2020-08-07] MEDS: CLONAZEPAM 0.5 MG TABLET PO PRN ×2 (09:41→16:13)
--- NOTE | 2020-08-07 10:18 | NUR ---
Family Contact: WILLARD called the pts partner, Deep ([phone]), and left a voicemail stating that the pt is going to be discharged back home today and asked for a call back to confirm that he can pick her up around 5pm.
[2020-08-07] MEDS ORDERED: CLIN300C11 PO (10:19)
[2020-08-07] MEDS ORDERED: CLOZ100T PO (10:19)
--- NOTE | 2020-08-07 10:33 | NUR ---
Outpatient MD Contact: WILLARD faxed a discharge summary and a medication list to Dr. Cordero (psychiatrist) at [facility] Located at [address] [place] [address] [place] [address]; ([phone]) to the fax number: [phone].
[2020-08-07 11:52] VITALS: BP 169/94
--- NOTE | 2020-08-07 12:57 | NUR ---
Family Contact: WILLARD called the pts partner, Deep ([phone]), and left a voicemail stating that the pt is going to be discharged back home today and asked for a call back to confirm that he can pick her up.
[2020-08-07 15:01] VITALS: BP 144/74
--- NOTE | 2020-08-07 15:32 | NUR ---
Clinical Social Work Note / Discharge Planning Spoke with patient's partner, Deep at 1450 ). He seemed surprised that she was being discharged today. Dr Martins discontinued 5270 earlier.Patient's mood euthymic and she is no longer exhibiting paranoia. Pt. is alert and oriented x4. Partner was not returning calls from 7th grade social studies teacherJazmin all day. This clinician advised him she was ready for discharge today and needed to be picked up. Amilcar said he would be here at 1800 and then called cd manufacturing supervisor and said he would be here by 1900. roslyn Foote RN is aware of discharge plan. Pt. is no longer on involuntary status. Patient will follow up with Dr Tavarez, [facility] ([phone]). She has a telepsych. appointment at 1300 on 08/08/[address] Tavarez. Discharge paperwork was faxed to [phone]. Labs. will be faxed to Dr Tavarez's office by Nataliia, community outreach coordinator. Partner, Deep, stated he was en route to the hospital at 1600 but had to leave [place] when was notified of her discharge. Patient is not meeting any criteria for involuntary care home. Partner is aware of the need to monitor her WBC levels and nurse will provide additional discharge information upon discharge.
--- NOTE | 2020-08-07 15:55 | NUR ---
Discharge Note: Pt was discharged to her home located at [address] [place] [id number]; ([phone]). Pts partner, Deep ([phone]), picked her up around 7pm. Upon discharge, the pt appeared to be in a euthymic mood and her affect was mood congruent. Pt denied both suicidal and homicidal ideation as well as auditory and visual hallucinations. Pt appeared to be ambulatory with an unsteady gait and uses the assistance of a walker. Pt appeared to be alert and oriented x4. Pt appeared to be well groomed and appropriately dressed. Pt has the following outpatient appointments scheduled: Patient will follow up with Dr. Cordero (psychiatrist) at [facility] Located at [address] [place] [address] [place] [address]; ([phone]) on August 11 at 9AM and will follow up with Dr. Cordero again on August 28 at 3:30PM.
--- NOTE | 2020-08-07 15:55 | NUR ---
Outpatient MD Contact: WILLARD faxed a discharge summary and a medication list to Dr. Cordero (psychiatrist) at [facility] Located at [address] [place] [address] [place] [address]; ([phone]) to the fax number: [phone].
--- NOTE | 2020-08-07 18:00 | NUR ---
dc orders received noted and carried out.dc instruction and education given to the pt and her ,pt left the facility via private car with her in stable condition
[2020-08-07] MEDS ORDERED: CLOZAPINE 100 MG TABLET PO SCH (21:00)
[2020-08-08] MEDS ORDERED: CLOZAPINE 25 MG TABLET PO SCH (09:00)
== END 2020-08-07 18:00 | disposition home health service (06) | DRG 602 ==
LOC: MEDSURG3 14:55
PROVIDERS: ADMIT Nurse Practitioner Acute Care; ATTEND Nurse Practitioner Acute Care
DX: L03.115 Cellulitis of right lower limb (principal); G93.41 Metabolic encephalopathy; L03.116 Cellulitis of left lower limb; E66.01 Morbid (severe) obesity due to excess calories; F25.9 Schizoaffective disorder, unspecified; F29 Unspecified psychosis not due to a substance or known physiological condition; Z73.6 Limitation of activities due to disability; F32.9 Major depressive disorder, single episode, unspecified; I10 Essential (primary) hypertension; E78.5 Hyperlipidemia, unspecified; J45.909 Unspecified asthma, uncomplicated; I87.2 Venous insufficiency (chronic) (peripheral); I80.9 Phlebitis and thrombophlebitis of unspecified site; Z68.24 Body mass index [BMI] 24.0-24.9, adult; F03.90 Unspecified dementia, unspecified severity, without behavioral disturbance, psychotic disturbance, mood disturbance, and anxiety; F12.10 Cannabis abuse, uncomplicated; M20.41 Other hammer toe(s) (acquired), right foot; Z79.899 Other long term (current) drug therapy; I89.0 Lymphedema, not elsewhere classified; Z86.72 Personal history of thrombophlebitis
CPT/HCPCS: 36415; 83735; 84100; 85025; G0378; J0692; J1200; J1630; J1650; J2060; J2405; J7060